=== PATIENT | female | born 1970 | race African-American/Black ===

== ENCOUNTER 2021-05-04 12:20 | Inpatient (IN) | payer MEDICAID, OTHER ==
[~2021-05-04] VITALS: Ht 162.6 cm; Wt 141.1 kg
[~2021-05-04 12:20] MED LIST: NORCO
[2021-05-04] MEDS ORDERED: ALBUTEROL (0.083%) 2.5MG/3ML NEB HHN STA (12:41)
[2021-05-04] MEDS ORDERED: IPRATROPIUM BROMIDE (0.02%) 0.5MG/2.5ML NEB HHN STA (12:41)
[2021-05-04] MEDS ORDERED: DEXAMETHASONE 10 MG/ML VIAL IV ONE (12:45)
[2021-05-04 13:49] LABS: BASOPHILS % 1.2 % (0.0-2.0); EOSINOPHILS % 0.4 % (0.0-5.0); HEMATOCRIT. 43.8 % (36.0-48.0); HEMOGLOBIN. 14.9 g/dL (12.0-16.0); LYMPHOCYTES % 20.6 % (20.0-50.0); MEAN CORPUSCULAR VOLUME 88.1 fL (81.0-99.0); MEAN PLATELET VOLUME 11.2 fl (7.4-10.4); MONOCYTES % 11.2 % (2.0-8.0); NEUTROPHILS % 66.6 % (40.0-76.0); PLATELET 178 x1000/uL (130-400); RED BLOOD CELL COUNT 4.97 mill/uL (4.2-5.4); RED CELL DISTRIBUTION WIDTH 15.2 % (11.6-14.6)
[2021-05-04 13:51] LABS: CHLORIDE 105 mEq/L (98-107)
[2021-05-04] MEDS ORDERED: ALBUTEROL (0.083%) 2.5MG/3ML NEB HHN NR (15:00)
[2021-05-04] MEDS ORDERED: IPRATROPIUM BROMIDE (0.02%) 0.5MG/2.5ML NEB HHN NR (15:00)
[2021-05-04] MEDS ORDERED: NITROGLYCERIN 0.4MG TABLET SL SL PRN (16:45)
[2021-05-04] MEDS ORDERED: MAGNESIUM/ALUMINUM HYDROXIDE/SIMETHICONE 30ML UDC PO PRN (16:45)
[2021-05-04] MEDS ORDERED: ACETAMINOPHEN 325MG TABLET PO PRN (16:45)
[2021-05-04] MEDS ORDERED: CLONIDINE 0.1MG TABLET PO PRN (16:45)
[2021-05-04] MEDS ORDERED: DOCUSATE SODIUM 100MG CAPSULE PO PRN (16:45)
[2021-05-04] MEDS ORDERED: ALBUTEROL 6.7GM HFA INHALER ORI PRN (16:45)
[2021-05-04] MEDS ORDERED: GUAIFENESIN 200MG/10ML SUGAR FREE UDC PO PRN (16:45)
[2021-05-04] MEDS ORDERED: ONDANSETRON HCL 4MG/2ML INJ IV PRN (16:45)
[2021-05-04 17:10] LABS: TOTAL IRON BINDING CAPACITY 330 ug/dL (250-450)
[2021-05-04] MEDS ORDERED: KETOROLAC 15MG/ML VIAL IV PRN (17:25)
[2021-05-04] MEDS ORDERED: CEFTRIAXONE 1 G PREMIX 50 ML IV SCH (17:30)
[2021-05-04 17:31] LABS: FOLIC ACID (FOLATE) SERUM >20 ng/mL ng/mL (>5.38)
[2021-05-04 17:42] LABS: VITAMIN B12 SERUM 670 pg/mL (211-911)
[2021-05-04] MEDS: AZITHROMYCIN 500 MG in DEXT 5% WATER 250 ML IV SCH (18:52)
[2021-05-04] MEDS ORDERED: ZOLPIDEM TARTRATE 5MG TABLET PO PRN (20:00)
[2021-05-04] MEDS ORDERED: ALBUTEROL 6.7GM HFA INHALER ORI SCH (21:00)
[2021-05-05] MEDS: ASCORBIC ACID 500 MG TABLET PO SCH ×3 (03:10→22:07)
[2021-05-05] MEDS: ENOXAPARIN 30MG/0.3ML SYR SUBCUT SCH ×2 (03:10→09:40)
[2021-05-05] MEDS: FAMOTIDINE 20MG TABLET PO SCH ×3 (03:10→22:07)
[2021-05-05] MEDS: METHYLPREDNISOLONE SOD SUCC 125 MG/2 ML VIAL IV SCH ×5 (03:14→22:08)
[2021-05-05 04:12] LABS: BASOPHILS % 0.4 % (0.0-2.0); HEMATOCRIT. 39.9 % (36.0-48.0); HEMOGLOBIN. 13.6 g/dL (12.0-16.0); LYMPHOCYTES % 21.7 % (20.0-50.0); MEAN CORPUSCULAR HEMOGLOBIN 30.1 pg (28.0-32.0); MEAN CORPUSCULAR VOLUME 88.3 fL (81.0-99.0); MEAN PLATELET VOLUME 10.8 fl (7.4-10.4); MONOCYTES % 7.6 % (2.0-8.0); NEUTROPHILS % 70.3 % (40.0-76.0); PLATELET 177 x1000/uL (130-400); RED BLOOD CELL COUNT 4.51 mill/uL (4.2-5.4); RED CELL DISTRIBUTION WIDTH 15.7 % (11.6-14.6)
[2021-05-05 04:19] LABS: CHLORIDE 105 mEq/L (98-107)
[2021-05-05 04:28] LABS: PHOSPHORUS 2.7 mg/dL (2.5-4.9)
[2021-05-05 04:30] LABS: CREATINE KINASE 500 IU/L (26-192)
[2021-05-05 04:34] LABS: CREATINE KINASE MB FRACTION 8.5 ng/mL (0.5-3.6)
[2021-05-05] MEDS: CHOLECALCIFEROL (D3) 1000 UNIT TABLET PO SCH (09:40)
[2021-05-05] MEDS: ZINC SULFATE 220 MG ( 50 ) CAPSULE PO SCH (09:40)
[2021-05-05 12:15] VITALS: BP 134/98
[2021-05-05] MEDS ORDERED: CHOL400C8 (13:29)
[2021-05-05] MEDS ORDERED: CALC-1042 PO (13:29)
[2021-05-05] MEDS ORDERED: LISI40TA13 PO (13:29)
[2021-05-05] MEDS ORDERED: FURO40TA5 PO (13:30)
[2021-05-05 16:00] VITALS: BP 135/81
[2021-05-05] MEDS: CEFTRIAXONE 1,000 MG in DEXTROSE 5% WATER 50 ML IV SCH (18:09)
[2021-05-05] MEDS: AZITHROMYCIN 500 MG in DEXT 5% WATER 250 ML IV SCH (19:04)
[2021-05-05 20:00] VITALS: BP 114/77
[2021-05-05] MEDS ORDERED: ALBUTEROL (0.083%) 2.5MG/3ML NEB HHN PRN (22:00)
[2021-05-05] MEDS: ENOXAPARIN 40MG/0.4ML SYR SUBCUT SCH (22:09)
[2021-05-06] VITALS: BP 118/68
[2021-05-06] MEDS: ALBUTEROL (0.083%) 2.5MG/3ML NEB HHN SCH ×4 (01:19→21:11)
[2021-05-06 01:41] LABS: CLARITY URINE CLEAR (CLEAR); COLOR URINE YELLOW (YELLOW); KETONES URINE TRACE (NEGATIVE); LEUKOCYTE ESTERASE URINE NEGATIVE (NEGATIVE); NITRITE URINE NEGATIVE (NEGATIVE); OCCULT BLOOD URINE NEGATIVE (NEGATIVE); PROTEIN URINE NEGATIVE (NEGATIVE); SPECIFIC GRAVITY URINE 1.028 (1.005-1.030); UROBILINOGEN URINE 0.2 E.U./dL (0.2-1.0)
[2021-05-06 01:56] LABS: *BARBITURATES SCREEN URINE NEGATIVE (NEGATIVE)
[2021-05-06 01:57] LABS: *AMPHETAMINES SCREEN URINE NEGATIVE (NEGATIVE); *BENZODIAZEPINES SCREEN URINE NEGATIVE (NEGATIVE); *COCAINE SCREEN URINE PRESUMTIVE POSITIVE (NEGATIVE); METHADONE URINE SCREEN NEGATIVE (NEGATIVE); OPIATES URINE SCREEN NEGATIVE (NEGATIVE); PHENCYCLIDINE URINE SCREEN PRESUMTIVE POSITIVE (NEGATIVE)
[2021-05-06 01:58] LABS: CANNABINOID URINE SCREEN PRESUMTIVE POSITIVE (NEGATIVE)
[2021-05-06 04:00] VITALS: BP 122/63
[2021-05-06] MEDS: METHYLPREDNISOLONE SOD SUCC 125 MG/2 ML VIAL IV SCH ×3 (06:00→21:07)
[2021-05-06] MEDS: ACETAMINOPHEN 325MG TABLET PO PRN (10:16)
[2021-05-06] MEDS: CHOLECALCIFEROL (D3) 1000 UNIT TABLET PO SCH (10:17)
[2021-05-06] MEDS: ASCORBIC ACID 500 MG TABLET PO SCH ×2 (10:17→21:07)
[2021-05-06] MEDS: FAMOTIDINE 20MG TABLET PO SCH ×2 (10:17→21:07)
[2021-05-06] MEDS: ENOXAPARIN 40MG/0.4ML SYR SUBCUT SCH ×2 (10:17→21:07)
[2021-05-06] MEDS: ZINC SULFATE 220 MG ( 50 ) CAPSULE PO SCH (10:17)
[2021-05-06 12:00] VITALS: BP 94/74
[2021-05-06 16:00] VITALS: BP 120/60
[2021-05-06] MEDS: CEFTRIAXONE 1,000 MG in DEXTROSE 5% WATER 50 ML IV SCH (17:30)
[2021-05-06 20:00] VITALS: BP 122/77
[2021-05-07 00:16] VITALS: BP 118/90
[2021-05-07] MEDS: AZITHROMYCIN 500 MG in DEXT 5% WATER 250 ML IV SCH ×2 (00:45→21:41)
[2021-05-07] MEDS: ACETAMINOPHEN 325MG TABLET PO PRN (01:54)
[2021-05-07] MEDS: ALBUTEROL (0.083%) 2.5MG/3ML NEB HHN SCH ×4 (02:15→18:39)
[2021-05-07] MEDS: METHYLPREDNISOLONE SOD SUCC 125 MG/2 ML VIAL IV SCH ×3 (06:48→21:41)
[2021-05-07 08:00] VITALS: BP 163/113
[2021-05-07] MEDS: FAMOTIDINE 20MG TABLET PO SCH ×2 (08:56→21:41)
[2021-05-07] MEDS: ASCORBIC ACID 500 MG TABLET PO SCH ×2 (08:56→21:41)
[2021-05-07] MEDS: ENOXAPARIN 40MG/0.4ML SYR SUBCUT SCH ×2 (08:56→21:41)
[2021-05-07] MEDS: CHOLECALCIFEROL (D3) 1000 UNIT TABLET PO SCH (08:56)
[2021-05-07] MEDS: ZINC SULFATE 220 MG ( 50 ) CAPSULE PO SCH (08:56)
[2021-05-07] MEDS ORDERED: INFLUENZA VACCINE 05/PF 0.5 ML SYRINGE IM ONE (10:00)
[2021-05-07] MEDS ORDERED: KETOROLAC 30MG/ML VIAL IV PRN (11:16)
[2021-05-07 12:00] VITALS: BP 138/89
[2021-05-07 16:00] VITALS: BP 134/88
[2021-05-07] MEDS: CEFTRIAXONE 1,000 MG in DEXTROSE 5% WATER 50 ML IV SCH (16:09)
[2021-05-07 20:35] VITALS: BP 134/73
[2021-05-08 00:21] VITALS: BP 126/85
[2021-05-08] MEDS: ALBUTEROL (0.083%) 2.5MG/3ML NEB HHN SCH ×2 (02:04→09:04)
[2021-05-08 04:00] VITALS: BP 138/81
[2021-05-08] MEDS: METHYLPREDNISOLONE SOD SUCC 125 MG/2 ML VIAL IV SCH (06:47)
[2021-05-08 08:00] VITALS: BP 148/90
[2021-05-08] MEDS: CHOLECALCIFEROL (D3) 1000 UNIT TABLET PO SCH (09:28)
[2021-05-08] MEDS: ENOXAPARIN 40MG/0.4ML SYR SUBCUT SCH (09:29)
[2021-05-08] MEDS: FAMOTIDINE 20MG TABLET PO SCH (09:29)
[2021-05-08] MEDS: ZINC SULFATE 220 MG ( 50 ) CAPSULE PO SCH (09:29)
[2021-05-08] MEDS: ASCORBIC ACID 500 MG TABLET PO SCH (09:29)
[2021-05-08 11:16] VITALS: BP 148/90
[2021-05-08] MEDS ORDERED: AZITHROMYCIN 500 MG TABLET PO SCH (21:00)
== END 2021-05-08 15:21 | disposition home or self-care (01) | DRG 139 ==
LOC: ER 12:20 → MICUSO 14:45 → 7EST 05-05 12:54
PROVIDERS: ADMIT Internal Medicine; ATTEND Internal Medicine
DX: J18.9 Pneumonia, unspecified organism (principal); J96.01 Acute respiratory failure with hypoxia; I50.43 Acute on chronic combined systolic (congestive) and diastolic (congestive) heart failure; J44.0 Chronic obstructive pulmonary disease with (acute) lower respiratory infection; J44.1 Chronic obstructive pulmonary disease with (acute) exacerbation; J45.901 Unspecified asthma with (acute) exacerbation; Z68.43 Body mass index [BMI] 50.0-59.9, adult; I11.0 Hypertensive heart disease with heart failure; E66.9 Obesity, unspecified; E11.9 Type 2 diabetes mellitus without complications; E78.00 Pure hypercholesterolemia, unspecified; F32.A Depression, unspecified; F41.9 Anxiety disorder, unspecified; Z20.822 Contact with and (suspected) exposure to COVID-19; F14.10 Cocaine abuse, uncomplicated; F16.10 Hallucinogen abuse, uncomplicated; F12.10 Cannabis abuse, uncomplicated
CPT/HCPCS: 36415; 71045; 80053; 80305; 81003; 82550; 82553; 82607; 82746; 83540; 83550; 83605; 83615; 83735; 83880; 84100; 84145; 84484; 85025; 87426; 87804; 90686; 93005; 93306; 93970; 94640; 99285; J0456; J0696; J1100; J1650; J2930; J7040; J7060; U0003; U0005

== ENCOUNTER 2023-03-31 13:54 | Emergency (ER) | payer OTHER, MEDICAID ==
[~2023-03-31] VITALS: Ht 177.8 cm; Wt 90.0 kg
[~2023-03-31 13:54] MED LIST changes: +CALC-1042 PO; +CHOL400C8; +FURO40TA5 PO; +LISI40TA13 PO; -NORCO
[2023-03-31 14:05] VITALS: BP 178/156; PULSE 109; RESP 14; O2SAT 100
== END 2023-03-31 16:42 | disposition home or self-care (01) ==
LOC: ER 13:54
DX: F12.10 Cannabis abuse, uncomplicated (principal); E78.00 Pure hypercholesterolemia, unspecified; I10 Essential (primary) hypertension; J45.909 Unspecified asthma, uncomplicated; Z98.890 Other specified postprocedural states
CPT/HCPCS: 99283

== ENCOUNTER 2023-05-13 15:18 | Emergency (ER) | payer MEDICAID, OTHER ==
[~2023-05-13] VITALS: Ht 160 cm; Wt 127.0 kg
[2023-05-13 15:30] VITALS: BP 144/93; PULSE 95; RESP 20; TEMP 98.2; O2SAT 95
== END 2023-05-13 19:22 | disposition left against medical advice (07) ==
LOC: ER 15:18
DX: Z53.21 Procedure and treatment not carried out due to patient leaving prior to being seen by health care provider (principal)
CPT/HCPCS: 99281

== ENCOUNTER 2024-10-31 10:45 | Emergency (ER) | payer OTHER ==
[~2024-10-31] VITALS: Ht 165.1 cm; Wt 125.0 kg
[~2024-10-31 10:45] MED LIST changes: +CHOL10CA2; -CHOL400C8
[2024-10-31 10:48] VITALS: TEMP 36.8; O2SAT 98
[2024-10-31 12:03] LABS: BASOPHILS % 0.8 % (0.0-2.0); EOSINOPHILS % 2.9 % (0.0-5.0); HEMATOCRIT. 41.4 % (36.0-48.0); HEMOGLOBIN. 14.4 g/dL (12.0-16.0); LYMPHOCYTES % 42.1 % (20.0-50.0); MEAN CORPUSCULAR HEMOGLOBIN 30.4 pg (28.0-32.0); MEAN CORPUSCULAR HGB CONC 34.8 g/dL (31.0-37.0); MEAN CORPUSCULAR VOLUME 87.4 fL (81.0-99.0); MEAN PLATELET VOLUME 10.4 fl (7.4-10.4); MONOCYTES % 7.1 % (2.0-8.0); NEUTROPHILS % 47.1 % (40.0-76.0); PLATELET 160 x1000/uL (130-400); RED BLOOD CELL COUNT 4.73 mill/uL (4.2-5.4); RED CELL DISTRIBUTION WIDTH 15.6 % (11.6-14.6)
[2024-10-31 12:04] LABS: CHLORIDE 108 mEq/L (98-107); POTASSIUM 3.8 mEq/L (3.5-5.1); SODIUM 140 mEq/L (136-145)
[2024-10-31 12:05] LABS: CARBON DIOXIDE 28 mEq/L (21-32)
[2024-10-31 12:06] LABS: CALCIUM 9.3 mg/dL (8.7-10.4)
[2024-10-31 12:10] LABS: GLUCOSE 102 mg/dL (70-105)
[2024-10-31 12:11] LABS: UREA NITROGEN BLOOD 12 mg/dL (9-23)
[2024-10-31 12:41] LABS: PROTHROMBIN TIME 10.6 sec (9.6-11.0)
[2024-10-31 12:56] VITALS: BP 153/112; PULSE 79; RESP 17; O2SAT 94
== END 2024-10-31 14:16 | disposition home or self-care (01) ==
LOC: ER 10:45
DX: I11.0 Hypertensive heart disease with heart failure (principal); I50.9 Heart failure, unspecified; J44.89 Other specified chronic obstructive pulmonary disease; F12.10 Cannabis abuse, uncomplicated
CPT/HCPCS: 36415; 80048; 85025; 99283